=== PATIENT | male | born 1985 | race Caucasian/White ===

== ENCOUNTER 2018-10-27 09:02 | Emergency (ER) | payer MEDICAID ==
[~2018-10-27] VITALS: Ht 175.3 cm; Wt 77.1 kg
--- NOTE | 2018-10-27 09:03 | NUR ---
Patient BIB [facility] for pre-booking medical screeninge exam, transferred to chair E. RN evaluating patient.
[2018-10-27 09:05] VITALS: BP 119/67
--- NOTE | 2018-10-27 09:15 | NUR ---
Dr. Whitaker evaluating patient.
--- NOTE | 2018-10-27 09:18 | NUR ---
Patient transferred to bed 8 for further care. RN re-evaluating patient at bedside.
[2018-10-27] MEDS ORDERED: BACITRACIN OINT 500 UNITS/GM PKT TP ONE (09:20)
[2018-10-27] MEDS ORDERED: CEPHALEXIN 500 MG CAP PO ONE (09:20)
--- NOTE | 2018-10-27 09:30 | NUR ---
[facility] PRE[facility]. MULTIPLE SCABS AND OPEN SORES ON BILATERAL LOWER EXTREMITIES. PT C/O PAIN 02/17. FOUL ODOR NOTED, NO DRAINAGE. PT ABLE TO AMBULATE.
--- NOTE | 2018-10-27 09:42 | NUR ---
WOUND CARE DONE TO BILATERAL LOWER EXTREMITIES. COVERED WITH DRESSING.
[2018-10-27 10:06] VITALS: BP 118/67
--- NOTE | 2018-10-27 10:07 | NUR ---
Patient discharged with v/s stable. Written and verbal after care instructions given and explained. Patient alert, oriented and verbalized understanding of instructions. Ambulatory with steady gait. All questions addressed prior to discharge. Patient advised to follow up with PMD. Rx of Keflex, Bactrim DS, Bacitracin ointment given. Patient educated on indication of medication including possible reaction and side effects. Opportunity to ask questions provided and answered.
== END 2018-10-27 10:05 ==
LOC: MED 09:02
DX: S81.802A Unspecified open wound, left lower leg, initial encounter (principal); S81.801A Unspecified open wound, right lower leg, initial encounter; L03.116 Cellulitis of left lower limb; L03.115 Cellulitis of right lower limb; L02.416 Cutaneous abscess of left lower limb; L02.415 Cutaneous abscess of right lower limb; L97.929 Non-pressure chronic ulcer of unspecified part of left lower leg with unspecified severity; L97.919 Non-pressure chronic ulcer of unspecified part of right lower leg with unspecified severity; F12.10 Cannabis abuse, uncomplicated; F11.10 Opioid abuse, uncomplicated; F17.200 Nicotine dependence, unspecified, uncomplicated; X58.XXXA Exposure to other specified factors, initial encounter; Y93.89 Activity, other specified; Y92.89 Other specified places as the place of occurrence of the external cause; Y99.8 Other external cause status
CPT/HCPCS: 99283

== ENCOUNTER 2019-03-17 23:15 | Emergency (ER) | payer MEDICAID ==
[~2019-03-17] VITALS: Ht 175.3 cm; Wt 77.1 kg
--- NOTE | 2019-03-17 23:15 | NUR ---
[facility] FOR PREBOOK. PT HAD MRS OF BILAT LOWER LEGS. WOUNDS HEALED. NO DRAINAGED. NO PAIN. VSS. NO OTHER COMPLAINS. NO DISTRESS OF ANY TYPE NOTED. ER MD AWARE. CONTINUE TO MONITOR.
--- NOTE | 2019-03-17 23:15 | NUR ---
[facility], PREBOOK. TAKEN TO CHAIR C
[2019-03-17 23:18] VITALS: BP 103/59
--- NOTE | 2019-03-17 23:32 | NUR ---
Dr. Mcgee examining patient.
[2019-03-18 00:10] VITALS: BP 103/59
--- NOTE | 2019-03-18 00:10 | NUR ---
PATIENT EXAMINED BY DR. PAINTING. PATIENT MEDICALLY CLEARED AND RELEASED IN CUSTODY IN STABLE CONDITION. ORIGINAL PRE-BOOK FORM GIVEN TO [facility] OFFICER.
== END 2019-03-18 00:10 ==
LOC: MED 23:15
DX: L03.115 Cellulitis of right lower limb (principal); L03.116 Cellulitis of left lower limb
CPT/HCPCS: 99283

== ENCOUNTER 2022-03-27 19:03 | Emergency (ER) | payer SELFPAY ==
[~2022-03-27] VITALS: Ht 175.3 cm; Wt 75.7 kg
[2022-03-27 19:05] VITALS: BP 138/80
--- NOTE | 2022-03-27 19:09 | NUR ---
Patient BIB by [facility] from parking lot. C/O Overdose x today. Per reported, patient found on parking lot, unknown substance abuse, Given Narcan 4 mg IM , and Bagging, Patient woke up, vomiting , VSS at the scence. PMHx: Unknown.
--- NOTE | 2022-03-27 19:09 | NUR ---
Patient taken to bed 9.
--- NOTE | 2022-03-27 19:22 | NUR ---
Patient states " I was smoking weed and Fentanyl tonight"
--- NOTE | 2022-03-27 19:32 | NUR ---
Dr. Chaudhari examining patient.
[2022-03-27] MEDS ORDERED: NALO4SPR NS (21:03)
[2022-03-27 21:10] VITALS: BP 138/80
--- NOTE | 2022-03-27 21:10 | NUR ---
Patient discharged with v/s stable. Written and verbal after care instructions given and explained by Dr. Chaudhari. Patient verbalized understanding. Ambulatory with steady gait. All questions addressed prior to discharge. Advised to follow up with PMD.
--- NOTE | 2022-03-27 21:42 | NUR ---
Called [facility] to report, patient walked out ER with IV (from ALS).
--- NOTE | 2022-03-27 21:58 | NUR ---
[facility] came and took report of incident.
== END 2022-03-27 21:10 | disposition home or self-care (01) ==
LOC: MED 19:03
DX: T40.414A Poisoning by fentanyl or fentanyl analogs, undetermined, initial encounter (principal); R40.1 Stupor; Z79.899 Other long term (current) drug therapy; Y92.009 Unspecified place in unspecified non-institutional (private) residence as the place of occurrence of the external cause
CPT/HCPCS: 99283